=== PATIENT | female | born 1950 | race Caucasian/White ===

== ENCOUNTER 2018-12-06 19:19 | Emergency (ER) | payer OTHER | END 2018-12-06 21:34 | disposition home or self-care (01) | LOC: FER 19:19 ==

== ENCOUNTER 2022-06-24 07:37 | Day surgery (SDC) | payer OTHER ==
[2022-06-20 12:43] VITALS: BMI 18.3
[2022-06-24] MEDS ORDERED: PROPOFOL 120 ML ONE (07:53)
[2022-06-24] MEDS ORDERED: LIDOCAINE HCL/PF 2% SDV 5ML VIAL ONE (07:53)
[2022-06-24 08:56] VITALS: RESP 16; TEMP 97.5
[2022-06-24 09:23] VITALS: BP 127/70; PULSE 76
== END 2022-06-24 09:20 | disposition home or self-care (01) ==
LOC: FASU-ENDO 07:37
PROVIDERS: ATTEND Internal Medicine Gastroenterology
PROC: 0DBP8ZX Excision of Rectum, Via Natural or Artificial Opening Endoscopic, Diagnostic (ICD-10-PCS; principal; 2022-06-24 08:24)
DX: Z12.11 Encounter for screening for malignant neoplasm of colon (principal); D12.8 Benign neoplasm of rectum; K63.5 Polyp of colon; K57.30 Diverticulosis of large intestine without perforation or abscess without bleeding
CPT/HCPCS: 88305-TC